=== PATIENT | male | born 1960 | race Two or more races ===

== ENCOUNTER 2022-06-15 23:22 | Emergency (ER) | payer MEDICAID ==
[~2022-06-15] VITALS: Ht 152.4 cm; Wt 68.0 kg
[2022-06-15 23:27] VITALS: BP 102/64
== END 2022-06-16 00:24 | disposition home or self-care (01) ==
LOC: ER 23:22
DX: Z02.79 Encounter for issue of other medical certificate (principal); F17.210 Nicotine dependence, cigarettes, uncomplicated; F20.9 Schizophrenia, unspecified; Z71.6 Tobacco abuse counseling; Z85.118 Personal history of other malignant neoplasm of bronchus and lung
CPT/HCPCS: 99283; 99406